=== PATIENT | male | born 1935 | race Caucasian/White ===

== ENCOUNTER 2016-10-09 09:59 | Outpatient (CLI) | payer OTHER ==
[2014-09-27 22:34] VITALS: BP 120/84
== END 2016-10-09 10:00 ==
LOC: LAB 09:59
PROVIDERS: ATTEND Family Medicine
DX: E11.9 Type 2 diabetes mellitus without complications (principal)
CPT/HCPCS: 36415; 83036

== ENCOUNTER 2017-04-28 10:10 | Outpatient (CLI) | payer OTHER ==
[2014-09-27 22:34] VITALS: BP 120/84
[2017-04-28 10:54] LABS: eGFR (African) > 60; eGFR (Non-African) > 60
== END 2017-04-28 10:11 ==
LOC: LAB 10:10
PROVIDERS: ATTEND Family Medicine
DX: E11.9 Type 2 diabetes mellitus without complications (principal); E78.2 Mixed hyperlipidemia
CPT/HCPCS: 36415; 80053; 80061; 83036

== ENCOUNTER 2017-11-17 08:47 | Outpatient (CLI) | payer OTHER ==
[2014-09-27 22:34] VITALS: BP 120/84
== END 2017-11-17 08:50 ==
LOC: LAB 08:47
PROVIDERS: ATTEND Family Medicine
DX: E11.9 Type 2 diabetes mellitus without complications (principal)
CPT/HCPCS: 36415; 83036

== ENCOUNTER 2018-05-17 09:46 | Outpatient (CLI) | payer OTHER ==
[2014-09-27 22:34] VITALS: BP 120/84
[2018-05-17 10:44] LABS: eGFR (African) > 60; eGFR (Non-African) > 60
== END 2018-05-17 09:47 ==
LOC: LAB 09:46
PROVIDERS: ATTEND Family Medicine
DX: E11.9 Type 2 diabetes mellitus without complications (principal)
CPT/HCPCS: 36415; 80053; 80061; 83036

== ENCOUNTER 2018-06-15 08:29 | Outpatient (CLI) | payer OTHER ==
[2014-09-27 22:34] VITALS: BP 120/84
[2018-06-15 10:04] LABS: BASOPHILS % 0.5 (0.0-1.5); EOSINOPHILS % 3.2 % (0.0-6.8); MEAN CORPUSCULAR HEMOGLOBIN 30.6 pg (28.0-34.0); MONOCYTES % 5.4 % (0.0-11.0); NEUTROPHILS # 3.3 # k/uL (1.4-7.7)
[2018-06-15 10:07] LABS: eGFR (Non-African) > 60
--- NOTE | 2018-06-15 10:48 | Diagnostic Imaging Report ---
ANGELA TOWNSEND [facility] [id number] [facility] [address] [place], [place]. [address] Report Submission Date: Jun 15, 2018 10:18:25 AM CDT Patient Study Name: AVINASH SRINIVASAN Date: Jun 15, 2018 9:29:53 AM CDT Modality Type: CT\SR Gender: M Description: CT BRAIN W/O CONTRAST : 33 Institution: [facility] Physician: ANGELA TOWNSEND Examination: CT head without contrast History: OTHER AMNESIA; DISORIENTATION, UNSPECIFIED PT STATES DISORIENTED, AMNESIA TYPE OF MEMORY LOSS, DIZZINESS X 2 DAYS AGO (Hx) Comparison exam: None available Technique: Noncontrast head CT protocol. Findings: Ventricles and sulci are mildly prominent. Cerebrocerebellar parenchyma demonstrates periventricular low attenuation consistent with small vessel disease. No evidence for parenchymal hemorrhage. No evidence for mass or mass effect. No midline shift. No extra axial fluid collections. Partial visualization of the paranasal sinuses, mastoid air cells, orbits, skull and scalp without gross irregularity. Impression: Advanced age related changes. No acute parenchymal process. No hemorrhage. Correlation with older exams recommended to confirm stability of the presumed age related parenchymal changes. Consider MRI brain to further evaluate if clinically warranted. Electronically signed on Jun 15, 2018 10:18:25 AM CDT by: Evelio PATTERSON
== END 2018-06-15 09:30 ==
LOC: RAD 08:29
PROVIDERS: ATTEND Family Medicine
DX: R41.3 Other amnesia (principal); R41.0 Disorientation, unspecified
CPT/HCPCS: 36415; 70450; 80053; 85025

== ENCOUNTER 2018-11-16 09:28 | Outpatient (CLI) | payer OTHER ==
[2014-09-27 22:34] VITALS: BP 120/84
== END 2018-11-16 09:30 ==
LOC: LAB 09:28
PROVIDERS: ATTEND Family Medicine
DX: E11.9 Type 2 diabetes mellitus without complications (principal)
CPT/HCPCS: 36415; 83036

== ENCOUNTER 2019-05-18 11:43 | Outpatient (CLI) | payer OTHER ==
[2014-09-27 22:34] VITALS: BP 120/84
[2019-05-18 12:14] LABS: A1C 6.1 % (<5.7)
[2019-05-18 12:31] LABS: eGFR (Non-African) > 60
[2019-05-18 12:32] LABS: HDL 39 mg/dL (>40)
== END 2019-05-18 11:45 ==
LOC: LAB 11:43
PROVIDERS: ATTEND Family Medicine
DX: E11.9 Type 2 diabetes mellitus without complications (principal)
CPT/HCPCS: 36415; 80053; 80061; 82043; 83036